=== PATIENT | female | born 1990 | race Caucasian/White ===

== ENCOUNTER 2025-06-05 13:09 | Emergency (ER) | payer MEDICAID, SELFPAY ==
[2025-06-05 13:10] VITALS: BMI 30.9
[2025-06-05 13:20] VITALS: BP 124/68; PULSE 116; RESP 17; TEMP 37.6; O2SAT 99
--- NOTE | 2025-06-05 13:41 | EDNOTE_ITS ---
Upper Respiratory Inf. RME/HPI General Chief Complaint: Flu Like Symptoms Stated Complaint: FLU LIKE S/S X4 DAYS AND Time Seen by Provider: 06/05/25 13:18 Source: patient, family, RN notes reviewed and old records reviewed Arrival date/time: 06/05/25 13:09 Mode of arrival: ambulatory Limitations: no limitations RME / HPI RME / HPI Narrative: 34yof presents to ED for 4-day history of subjective fever, chills, sore throat and headache. No sick contacts at home. No congestion, cough, shortness of breath or nausea/vomiting reported. Patient has taken Tylenol with mild relief. She also reports positive home test 2 days ago, approx 5 weeks OB. No pelvic pain or vaginal bleeding reported. Related Data Home Medications ?Medication ?Instructions ?Recorded ?Confirmed fluticasone propionate 50 2 spray intranasal QDAY 11/1311/26/19 mcg/actuation nasal spray,suspension (Flonase Allergy Relief) loratadine 10 mg tablet (Claritin) 10 mg PO QDAY 11/2511/26/19 Previous Rx's ?Medication ?Instructions ?Recorded benzonatate 200 mg capsule 200 mg PO TID PRN cough #30 caps 11/26/19 ipratropium bromide 21 mcg (0.03 2 spray intranasal BI D #30 mL 11/26/19 %) nasal spray amoxicillin 500 mg tablet 1,000 mg (2 x 500 mg) PO QDA Y 7 06/05/25 days #14 tabs Allergies Allergy/AdvReac Type Severity Reaction Status Date / Time No Known Allergies Allergy Verified 11/26/19 19:30 Review of Systems Review of Systems Systems Reviewed: All systems reviewed, normal except as documented Constitutional Constitutional: Reports chills, Reports fever(s) and Reports headache(s) ENT Ears, Nose, Mouth, and Throat: Reports headache(s), Denies nasal congestion and Reports sore throat Cardiovascular Cardiovascular: Denies chest pain and Denies dyspnea Respiratory Respiratory: Denies dyspnea Gastrointestinal Gastrointestinal: Denies abdominal pain, Denies nausea and Denies vomiting Genitourinary Genitourinary: Denies abnormal vaginal bleeding and Denies pelvic pain Musculoskeletal Musculoskeletal: Reports myalgias Neurologic Neurologic: Reports headache(s) Past Medical History Past Medical History GASTROINTESTINAL: Positive Obesity Social History SMOKING STATUS: Never smoker SUBSTANCE USE: does not use ALCOHOL: Never ED Exam General Limitations: Present no limitations General appearance: Present alert and in no apparent distress Head Head exam: Present atraumatic and normocephalic Eye Eye exam: Present normal appearance, PERRL and EOMI ENT ENT exam: Present mucous membranes moist, TM's normal bilaterally and other (Mild pharyngeal erythema with 2+ tonsillar swelling b/l without exudate, uvula midline) Neck Neck exam: Present normal inspection and full ROM; Absent meningismus or lymphadenopathy Chest Chest inspection: Present normal inspection and symmetric chest wall rise Respiratory Respiratory exam: Present normal lung sounds bilaterally; Absent respiratory distress Cardiovascular Cardiovascular exam: Present regular rate and normal rhythm Extremities Exam Extremities exam: Present normal inspection and full ROM Neurological Exam Neurological exam: Present alert and oriented X3 Psychiatric Psychiatric exam: Present normal affect and normal mood Skin Skin exam: Present warm, dry, intact and normal color Course Quality Measures none Orders Category Date Time Status Bedside COVID-19 Antigen Test NOW Care 06/05/25 13:28 Completed Bedside Influenza A&B Antigen Test NOW Care 06/05/25 13:28 Completed Strep A Rapid Stat Lab 06/05/25 13:37 Completed Vital Signs Vital signs: Vital Signs Temperature 99.6 F 06/05/25 13:20 Pulse Rate 116 H 06/05/25 13:20 Respiratory Rate 17 06/05/25 13:20 Blood Pressure 124/68 06/05/25 13:20 Pulse Oximetry (%) 99 06/05/25 13:20 Oxygen Delivery Method Room Air 06/05/25 13:20 Upper Respiratory Infection MDM Narrative MDM Narrative:: 34yof presents to ED for 4-day history of subjective fever, chills, sore throat and headache. No sick contacts at home. No congestion, cough, shortness of breath or nausea/vomiting reported. Patient has taken Tylenol with mild relief. She also reports positive home test 2 days ago, approx 5 weeks OB. No pelvic pain or vaginal bleeding reported. Patient is nontoxic-appearing, afebrile, vitals are stable. No evidence of airway compromise or respiratory distress. Encouraged rest, fluids, symptomatic treatment, fever management prn. Strep test was negative. Will prescribe Amoxil to take if symptoms not improved in the next few days. Stable for discharge, RTED precautions given. Patient data External records reviewed:: [facility] previous records (Urgent care visit 11/26/2023 cough) Clinical information provided by:: patient Social determinants that could affect healthcare access:: none Patient has the following chronic illnesses:: Obesity How is presenting disease/condition affected by chronic disease/condition?: uneffected by Evaluation data The following diagnostics were reviewed and interpreted by me:: lab results Lab and/or radiology exams considered but not ordered:: OB ultrasound: No symptoms Interpretation Summary: Negative COVID/flu Medications / Prescriptions Medications or Prescriptions considered but not ordered:: None Medication administrations:: None Consultations Consultation(s) initiated? (list below): No Diagnosis Upper Respiratory Differential Diagnosis: other (URI, COVID, flu, viral illness, pharyngitis, tonsillitis) Most likely diagnosis given after review of the tests above:: Pharyngitis Admission Indicated Admission indicated?: not indicated Admission Request Was there a request for admission?: No Disposition Plan Disposition Plan: Discharge Discharge Attestation Discharge Attestation: The patient and all family members were given an opportunity to ask questions and understood the discharge instructions. Discharge instructions specifically effects, indications for sooner follow up or return to the emergency department, and the expected course of current diagnosis. Patient condition: Stable Discharge Plan Plan Patient Disposition: HOME (Self Care) Patient condition on transfer: Stable Prescriptions/Referrals Prescriptions/Med Rec: New amoxicillin 500 mg tablet 1,000 mg PO QDAY 7 Days Qty: 14 0RF No Action loratadine [Claritin] 10 mg tablet 10 mg PO QDAY fluticasone propionate [Flonase Allergy Relief] 50 mcg/actuation spray,suspension 2 spray INTRANASAL QDAY ipratropium bromide 0.03 % spray,non-aerosol 2 spray INTRANASAL BID Qty: 30 0RF Rx Instructions: administer into each nostril; wait 30 seconds between sprays benzonatate 200 mg capsule 200 mg PO TID PRN (Reason: cough) Qty: 30 0RF Referrals: Sergio Anton MD [Primary Care Provider, Family Practice] - In 1 week Problem List Clinical Impression: URI (upper respiratory infection), Pharyngitis Patient/Caregiver Discharge Instructions Education Materials: Self-Care for Sore Throats Print Language: Italian Stand Alone Forms: [employer] Award Info., Work/School Release, Patient Portal Info Letter PA/[employer] Supervising Physician PA/ARISTIDES Supervising Physician: Brii
[2025-06-05 14:32] LABS: Strep A Rapid Negative (Negative)
== END 2025-06-05 15:01 | disposition home or self-care (01) ==
PROVIDERS: Physician Assistant; Emergency Provider Emergency Medicine; PCP Family Medicine
DX: J02.9 Acute pharyngitis, unspecified (principal)
CPT/HCPCS: 87651; 99283